=== PATIENT | male | born 1950 | race Caucasian/White ===

== ENCOUNTER 2016-12-25 22:46 | Emergency (ER) | payer MEDICARE, OTHER ==
[2016-12-25] MEDS ORDERED: NORMAL SALINE 500 ML IV ONE (23:12)
[2016-12-25] MEDS ORDERED: KETOROLAC TROMETHAMINE 30 MG/ML VIAL ONE (23:12)
[2016-12-25] MEDS ORDERED: ONDANSETRON HCL 4 MG/2 ML VIAL ONE (23:12)
--- NOTE | 2016-12-25 23:39 | RADIOLOGY REPORT ---
HISTORY: Small. COMPARISON: None. FINDINGS: 2 views of the shoulder obtained. There is a minimally displaced fracture involving the greater tube rosity of the proximal humerus. Otherwise alignment appears anatomic. There is no glenohumeral dislo cation. There is no acromioclavicular separation. There is superficial soft tissue swelling about t he shoulder. IMPRESSION: Minimally displaced fracture involving the greater tuberosity of the proximal humerus. Final Electronic Signature: This report was electronically signed by Isael Mars MD on 7 11:36 PM. piper /
--- NOTE | 2016-12-26 00:40 | ER PHYSICIAN DOCUMENTATION ---
Physician Documentation [facility] Name:Cornelius Tolentino Age:66 yrs Sex:Male :1950 Arrival Date:12/25/2016 Time:22:46 Bed1 Private MD: Mark Galaviz Disposition: 12/26/16 00:19 Discharged to Home/Self Care. Impression: Humeral Neck Fracture - / Left Greater Tuberosity. - Condition is Good. - Discharge Instructions: FRACTURE, Upper Extremity. - Prescriptions for Hydrocodone- Acetaminophen 5-325 mg Oral - take 1 tablet by ORAL route every 6 hours As needed; 30 tablet. - Medical Reconciliation form form. - Follow up: Private Physician; When: 2 - 3 days; Reason: Recheck today's complaints, Continuance of care. - Problem is new. - Symptoms have improved. - Notes: Ice packs to left shoulder for 2 days. Maintain in a Shoulder Immobilizer until seen by your Orthopedic Surgeon on Thursday or Thursday. Take Ibuprofen 600mg by mouth every 6 hours with food for pain. Take Hydrocodone one tab by mouth with food every 6 hours as needed for severe pain. Follow up with an Orthopedic Surgeon in 3 - 4 days. HPI: 12/25 23:00 This 66 yrs old Male presents to ER via Wheelchair with complaints of Fall cd Injury - LEFT SIDE - SHOULDER, LEG, FACE. 23:00 Details of fall: The patient fell from an upright position, while walking, missed curb cd and fell on the concrete striking his left lateral shoulder, left head and face.. Onset: The symptom(s)/episode began/occurred acutely, just prior to arrival. Associated injuries: The patient sustained injury to the head, contusion, anterior aspect of left shoulder. Associated signs and symptoms: Pertinent positives: headache, nausea, severe pain to his left shoulder, Pertinent negatives: abdominal pain, chest pain, memory problems, numbness, pelvic pain, shortness of breath, vomiting, Loss of consciousness: the patient experienced no loss of consciousness. Severity of symptoms: At their worst the symptoms were severe, in the emergency department the symptoms are unchanged. The patient has not experienced similar symptoms in the past. Historical: - Allergies: No known drug Allergies; - Home Meds: 1. None - Tetanus: < 10 years. - Ebola Screening: : Patient negative for fever greater than or equal to 101.5 degrees Fahrenheit, and additional compatible Ebola Virus Disease symptoms. Patient denies exposure to infectious person. Patient denies travel to an Ebola-affected area in the 21 days before illness onset. No symptoms or risks identified at this time. . - Immunization history: Flu Vaccine < 1 year. - Social history: Smoking status: Patient states was never smoker of tobacco. ROS: 23:00 Neck: Negative for injury, pain, stiffness and swelling. cd Cardiovascular: Negative for chest pain, palpitations, edema and pleuritic pain. Respiratory: Negative for shortness of breath, dyspnea on exertion, cough, sputum production, wheezing, hemoptysis and pleuritic chest pain. Abdomen/GI: Negative for abdominal pain, nausea, vomiting, diarrhea, constipation, distension, melena, hematochezia and hematemesis. Back: Negative for injury, pain or muscle spasms. Skin: Negative for injury, rash, itching and discoloration. 23:00 Neuro: Negative for headache, weakness, numbness, tingling, and seizure. cd 23:00 Constitutional: Positive for poor PO intake. 23:00 MS/extremity: Positive for injury or acute deformity, decreased range of motion, deformity, pain, swelling, of the anterior aspect of left shoulder, Negative for paresthesias, tingling. 23:00 All other systems are negative. Exam: Head/Face: Normocephalic, atraumatic. ENT: Nares patent. No nasal discharge, no septal abnormalities noted. Tympanic membranes are normal and external auditory canals are clear. Oropharynx with no redness, swelling, or masses, exudates, or evidence of obstruction, uvula midline. Mucous membranes moist. Neck: Trachea midline, no thyromegaly or masses palpated, and no cervical lymphadenopathy. Supple, full range of motion without nuchal rigidity, or vertebral point tenderness. No Meningismus. Chest/axilla: Normal chest wall appearance and motion. Nontender with no deformity. No lesions are appreciated. Cardiovascular: Regular rate and rhythm with a normal S1 and S2. No gallops, murmurs, or rubs. Normal PMI, no JVD. No pulse deficits. Respiratory: Lungs have equal breath sounds bilaterally, clear to auscultation and percussion. No rales, rhonchi or wheezes noted. No increased work of breathing, no retractions or nasal flaring. Abdomen/GI: Soft, non-tender, with normal bowel sounds. No distension or tympany. No guarding or rebound. No evidence of tenderness throughout. Back: No spinal tenderness. No costovertebral tenderness. Full range of motion. Skin: Warm, dry with normal turgor. Normal color with no rashes, no lesions, and no evidence of cellulitis. 23:15 Neuro: Awake and alert, GCS 15, oriented to person, place, time, and situation. cd Cranial nerves II-XII grossly intact. Motor strength 5/5 in all extremities. Sensory grossly intact. Cerebellar exam normal. Normal gait. 23:15 Constitutional: The patient appears alert, awake, non-toxic, well developed, well nourished, anxious, diaphoretic, in obvious distress, severely distressed. 23:15 Musculoskeletal/extremity: Extremities: grossly normal except: noted in the anterior aspect of left shoulder: contusion, decreased ROM, pain, swelling, ROM: the patient is contracted, Circulation is intact in all extremities. Sensation intact. 23:15 Neuro: Orientation: is normal, to person, place & time. Mentation: is normal, lucid, Memory: is normal, Cranial nerves: CN II- XII are normal as tested, Motor: moves all fours, Sensation: is normal. Vital Signs: 22:54 BP 145 / 92; Pulse 89; Resp 20; Temp 98.0; Pulse Ox 93% on R/A; Weight 95.25 kg; Height mv 5 ft. 9 in. (175.26 cm); Pain 5/10; 12/26 00:39 BP 149 / 62; Pulse 82; Resp 18; Pulse Ox 92% on R/A; bw2 12/25 22:54 Body Mass Index 31.01 (95.25 kg, 175.26 cm) mv [place] Coma Score: 12/25 23:15 Eye Response: spontaneous(4). Verbal Response: oriented(5). Motor Response: obeys cd commands(6). Total: 15. MDM: 22:48 Patient medically screened. cd 23:00 Differential diagnosis: contusion, fracture, sprain. cd 12/26 00:10 Data reviewed: vital signs, nurses notes, old medical records, radiologic studies, and cd as a result, I will discharge patient, prescribe pain medication, Dilaudid, Toradol. Data interpreted: Pulse oximetry: on room air is 92 %. Interpretation: normal. Counseling: I had a detailed discussion with the patient and/or guardian regarding: the historical points, exam findings, and any diagnostic results supporting the discharge/admit diagnosis, radiology results, the need for outpatient follow up, for a recheck, for a referral to a specialist, a orthopedic surgeon, to return to the emergency department if symptoms worsen or persist or if there are any questions or concerns that arise at home. 00:12 Response to treatment: the patient's symptoms have markedly improved after treatment, cd the patient's condition has returned to base line, and as a result, I will discharge patient. 12/25 23:41 Order name: SHOULDER; 2V+ [place] [id number]; Complete Time: 00:17 EDMS 12/26 00:17 Interpretation: Abnormal: Left Greater Tuberosity Fracture; See Radiologist Report. cd 12/25 22:55 Order name: NPO; Complete Time: 23:05 cd 12/25 23:12 Order name: Oxygen; Complete Time: 23:12 mv 12/26 00:23 Order name: ORTHO: Shoulder Immobilizer; Complete Time: 00:38 cd Dispensed Medications: 12/25 23:04 Drug: NS 0.9% 500 ml; Route: IV; Rate: bolus; Site: right antecubital; 2 12/26 00:21 Follow up: IV Status: Completed infusion 12/25 23:05 Drug: Zofran 4 mg; Route: IVP; Infused Over: 2 mins; Site: right antecubital; 2 12/26 00:22 Follow up: Response: Nausea is decreased [facility] 12/25 23:05 Drug: Dilaudid 1 mg; Route: IVP; Site: right antecubital; 2 12/26 00:22 Follow up: Response: Pain is decreased [facility] 12/25 23:05 Drug: Toradol 15 mg; Route: IVP; Site: right antecubital; 2 12/26 00:22 Follow up: Response: Pain is decreased bw2 00:38 Drug: HYDROcodone-acetaminophen (5mg/325 mg) 1-2 tabs 1 tabs; Route: PO; bw2 00:38 Follow up: Response: Pharmacy closed - take home med pack 2 Signatures: Mark Montalvo MD MD cd vogel, margaux mv Wisely, Leona bw2
--- NOTE | 2016-12-26 00:40 | ER NURSING DOCUMENTATION ---
Nurse's Notes [facility] Name:Cornelius Tolentino Age:66 yrs Sex:Male :1950 Arrival Date:12/25/2016 Time:22:46 Bed1 Private MD: Diagnosis:Humeral Neck Fracture-/ Left Greater Tuberosity Presentation: 12/25 22:47 Acuity: SOURAV 4 bw2 22:59 Presenting complaint: Patient states: states he missed the curb and fell onto left bw2 shoulder. pt denies LOC. Transition of care: patient was not received from another setting of care. 22:59 Acuity: SOURAV 3 bw2 22:59 Method Of Arrival: Wheelchair bw2 Triage Assessment: 23:01 General: Appears in no apparent distress, uncomfortable, Behavior is anxious, bw2 appropriate for age. Pain: Complains of pain in left shoulder Pain began suddenly, 30 min ago Aggravated by exercise, increased activity, repositioning. Respiratory: No deficits noted. GI: No deficits noted. Historical: - Allergies: No known drug Allergies; - Home Meds: 1. None - Tetanus: < 10 years. - Ebola Screening: : Patient negative for fever greater than or equal to 101.5 degrees Fahrenheit, and additional compatible Ebola Virus Disease symptoms. Patient denies exposure to infectious person. Patient denies travel to an Ebola-affected area in the 21 days before illness onset. No symptoms or risks identified at this time. . - Immunization history: Flu Vaccine < 1 year. - Social history: Smoking status: Patient states was never smoker of tobacco. Screenin:02 Infectious Disease Risk None. Abuse screen: Denies threats or abuse. Nutritional bw2 screening: No deficits noted. Assessment: 23:02 See Triage Assessment done by same RN. bw2 23:02 Musculoskeletal: other left shoulder. bw2 Vital Signs: 22:54 BP 145 / 92; Pulse 89; Resp 20; Temp 98.0; Pulse Ox 93% on R/A; Weight 95.25 kg; Height mv 5 ft. 9 in. (175.26 cm); Pain 5/10; 12/26 00:39 BP 149 / 62; Pulse 82; Resp 18; Pulse Ox 92% on R/A; bw2 12/25 22:54 Body Mass Index 31.01 (95.25 kg, 175.26 cm) mv [place] Coma Score: 12/25 23:15 Eye Response: spontaneous(4). Verbal Response: oriented(5). Motor Response: obeys cd commands(6). Total: 15. ED Course: 22:47 Patient arrived in ED. ma1 22:47 Triage completed. bw2 22:48 aMrk Montalvo MD is Attending Physician. cd 22:59 Leona Bernal is Primary Nurse. bw2 23:02 Valuables Remains with patient Patient has correct armband on for positive bw2 identification. Placed in gown. Side rails up X2. 23:03 Inserted peripheral IV: 18 gauge in left antecubital area and blood collected. bw2 23:22 Port Xray Completed. karishma Administered Medications: 23:04 Drug: NS 0.9% 500 ml; Route: IV; Rate: bolus; Site: right antecubital; 2 12/26 00:21 Follow up: IV Status: Completed infusion 2 12/25 23:05 Drug: Zofran 4 mg; Route: IVP; Infused Over: 2 mins; Site: right antecubital; 2 12/26 00:22 Follow up: Response: Nausea is decreased 2 12/25 23:05 Drug: Dilaudid 1 mg; Route: IVP; Site: right antecubital; 2 12/26 00:22 Follow up: Response: Pain is decreased 2 12/25 23:05 Drug: Toradol 15 mg; Route: IVP; Site: right antecubital; 2 12/26 00:22 Follow up: Response: Pain is decreased 2 00:38 Drug: HYDROcodone-acetaminophen (5mg/325 mg) 1-2 tabs 1 tabs; Route: PO; bw2 00:38 Follow up: Response: Pharmacy closed - take home med pack bw2 Outcome: 00:19 Discharge ordered by . cd 00:39 Discharged to home via wheelchair, with friend. bw2 00:39 Condition: good 00:39 Discharge Assessment: Patient awake, alert and oriented x 3. No cognitive and/or functional deficits noted. Patient verbalized understanding of disposition instructions. 00:39 Discharge instructions given to patient, friend, Instructed on discharge instructions, medication usage, no drinking with medication, no driving heavy equipment, Ortho [facility] Demonstrated understanding of instructions, medications, Prescriptions given X 1. 00:40 Patient left the ED. bw2 Signatures: Mark Montalvo MD MD cd Abbott, garrick Butler Beth bw2 Ree Ahumada
== END 2016-12-26 00:40 | disposition home or self-care (01) ==
LOC: ER 22:46
DX: S42.252A Displaced fracture of greater tuberosity of left humerus, initial encounter for closed fracture (principal); S00.03XA Contusion of scalp, initial encounter; W10.1XXA Fall (on)(from) sidewalk curb, initial encounter; Y92.480 Sidewalk as the place of occurrence of the external cause; Y93.01 Activity, walking, marching and hiking
CPT/HCPCS: 96361; 96374; 96375; 99283; 99284; J1170; J1885; J2405; J7040